=== PATIENT | female | born 1990 | race Two or more races ===

== ENCOUNTER 2024-10-30 16:38 | Emergency (ER) | payer OTHER, SELFPAY ==
[2024-10-30 16:39] VITALS: BP 123/71; PULSE 90; RESP 18; TEMP 36.7; O2SAT 100; BMI 22.9
[2024-10-30 16:41] VITALS: BP 123/71; PULSE 90; RESP 18; TEMP 36.7; O2SAT 100
--- NOTE | 2024-10-30 16:53 | EX.ED.DYSGE1 ---
HPI History of Present Illness Chief Complaint: Cellulitis Detail of Chief Complaint: Patient concerned she has cellulitis. Informant: patient and spouse/S.O. Onset/Context/Timing Onset: Today (Color drainage noted on dressing) Context: Sudden Onset Timing: Continuous Quality: Drainage from incision sites Location: Medial and dorsal surface of the left foot Current Severity: Mild Maximum Severity: Moderate Worsened by: Weightbearing Relieved by: Nothing Associated Symptoms Associated Symptoms: No constitutional symptoms Narrative Narrative: Patient is a 54-year-old woman. She receives her care at [facility]. Dr. David Ramirez with the orthopedic surgeon. She spoke with the trauma surgeon who recommended she come to the emergency department to be seen. She presented to [facility] as instructed. She denies fever, chills night sweats. She does report the drainage. She denies red streak up her leg. She is not on any immunosuppressive meds. She is not on any antibiotics. She has no allergies to medication. Prior similar symptoms: No Recent Illness/Hospitalization: Yes PFSH PFSH Medical History no medical history Allergy/AdvReac Type Severity Reaction Status Date / Time No Known Allergies Allergy Verified 10/30/24 16:39 Social History (Updated 10/30/24 @ 17:[address] Rohit Hardin MD) household members: spouse Smoking Status: Never smoker ROS ROS ED Constitutional Constitutional ED: Denies chills, fever(s), subjective, sweats or weight loss Gastrointestinal Gastrointestinal: Denies nausea or vomiting Musculoskeletal Musculoskeletal: Denies arthralgias, back pain, myalgias or neck pain Integumentary Reports other Details: Yellow-colored stain noted on dressing. ; Denies rash Neurologic Neurologic: Denies paresthesias or weakness Hematologic/Lymphatic Hematologic/Lymphatic: Reports systems reviewed and no addt'l complaints, except as documented EXAM Physical Exam Const Vital Signs: 10/30/24 16:39 10/30/24 16:41 10/30/24 18:39 Temperature 98.1 F 98.1 F Temperature Source Oral Oral Pulse Rate 90 90 85 Respiratory Rate 18 18 17 Blood Pressure 123/71 H 123/71 H 124/76 H Blood Pressure Mean 88 88 92 Pulse Ox 100 100 98 Oxygen Delivery Method Room Air Room Air Room Air Positive well nourished and well developed Constitutional Narrative: Blood pressure slightly elevated. General Appearance ED: well developed and NAD; Negative for pallor HEENT Reports moist mucous membranes HEENT Narrative: HEENT is grossly unremarkable. Resp normal respiratory effort Cardio regular rate and regular rhythm Extremity Negative for normal to inspection Extremity Narrative: Incision sites are healing without evidence infection i.e. erythema, warmth, induration, lymphangitis or fluctuance. I am unable to express any material from the 3 incision sites. There is no popliteal lymphadenopathy. General Extremety ED: Yes tenderness Neuro oriented x3 and CN's II-XII intact bilaterally Sensorium / Orientation: alert Psych mental status grossly normal Skin no rashes or lesions noted and skin turgor normal General Skin Exam: Negative for jaundice or pallor MDM MDM MDM Narrative Medical decision making narrative: My opinion is that the drainage is due to serous fluid that has oxidized from the air. Because there is concern for infection CBC was obtained as well as inflammatory markers and a x-ray of the foot was obtained. Will contact either Dr. David Ramirez who performed the surgery or the trauma service who sent her to the emergency department to discuss her case once all of her laboratory results have been resulted and interpreted by me. Lab Data Attestation: I reviewed the patient's lab results. Lab results narrative: White count is remarkable for mild anemia with normal indices. ESR was normal. CRP is slight elevated 18.1. Electrolyte panel is normal. Labs: Laboratory Results - last 24 hr 10/30/24 17:18 WBC 5.1 RBC 3.80 L Hgb 11.5 L Hct 35.6 L MCV 93.7 MCH 30.3 MCHC 32.3 RDW Std Deviation 43.2 RDW Coeff of Ashkan 12.6 Plt Count 322 MPV 9.3 Immature Gran % (Auto) 0.600 Neut % (Auto) 57.1 Lymph % (Auto) 30.4 Graves % (Auto) 8.4 Eos % (Auto) 3.1 Baso % (Auto) 0.4 Absolute Neuts (auto) 2.9 Absolute Lymphs (auto) 1.56 Nucleated RBC % 0 ESR 15 Sodium 136 Potassium 4.0 Chloride 104 Carbon Dioxide 31.0 Anion Gap 1 L BUN 12 Creatinine 0.70 Estim Creat Clear Calc 120.15 Est GFR (MDRD) Af Amer 121 Est GFR (MDRD) Non-Af 100 BUN/Creatinine Ratio 17.1 Glucose 92 Calcium 8.9 C-React Prot Ext Range 18.10 H Radiography Chest X-Ray - ED: Read by ED Physician (2 view x-ray of the left foot reveals a nondisplaced fracture of the proximal phalanx second left toe. There is also soft tissue swelling noted. There is no subcutaneous air.) Diagnostic Testing: Clinical Impression(s) from Imaging Studies Foot X-Ray 10/30/24 17:25 IMPRESSION: Proximal phalangeal fracture of the second toe.. Electronically Signed: Main Hill DO at 17:50 EST Reading Location ID and State: [facility] / [place] Tel [phone], Service support , Management Discussion w/another healthcare provider: System Specialist (Spoke with Dr. Marcelo Sharma from [facility]. He will let Dr. David Conrad know of patient's history, physical workup and reason she presented to the emergency department.) Discharge Plan Triage Chief Complaint: Cellulitis ED Provider: Rohit Hardin Dx/Rx/DC Orders Clinical Impression: Fracture of proximal phalanx of lesser toe of left foot, Postoperative pain, Encounter for assessment of wound Instructions: ED Post Op Wound Check, General Primary Care Provider: Care Physician,No Primary Referrals: David Ramirez MD [Non-Staff] - Keep Cristina appointment Care Physician,No Primary [Primary Care Provider] - Print Language: Ukrainian Disposition Disposition: Home, Self Care
--- NOTE | 2024-10-30 17:25 | RAD_ITS ---
INDICATION: Recent open fracture EXAMINATION/TECHNIQUE: X-RAY - LEFT XR Foot Min 3 Views 3 VIEWS COMPARISON: FINDINGS: SOFT TISSUES: No soft tissue swelling or gas. No radiopaque foreign body. BONES/JOINTS: There is a fracture involving the proximal phalanx of the second toe with involvement of the articular surface at the metacarpal phalangeal articulation.. No sclerotic or destructive changes observed. RAD/Foot min 3 Views IMPRESSION: Proximal phalangeal fracture of the second toe.. Electronically Signed: Main Hill DO at 17:50 EST ,
[2024-10-30 17:38] LABS: Absolute Lymphocyte Count 1.56 X10^3/uL (0.83-4.51); Absolute Neutrophil Count 2.9 X10^3/uL (2.0-7.7); Basophil# 0.02 X10^3/uL; Basophil% 0.4 % (0-1); Eosinophil# 0.16 X10^3/uL; Eosinophils% 3.1 % (0-5); Hematocrit 35.6 % (37-47); Hemoglobin 11.5 g/dL (12.0-15.0); Lymphocyte # 1.56 X10^3/ul (0.83-4.51); Lymphocyte % 30.4 % (19-41); Mean Corp Hgb Conc 32.3 g/dL (32-36); Mean Corpuscular Hgb 30.3 pg (27.0-32.0); Mean Corpuscular Volume 93.7 fL (81-99); Mean Platelet Vol. 9.3 fl (6.2-12.0); Monocyte# 0.43 X10^3/uL; Monocyte% 8.4 % (0-10); NRBC Flagged by Analyzer 0 % (0-5); Neutrophil # 2.93 X10^3/uL (2.7-7.7); Neutrophil % 57.1 % (47-70); Platelet Count 322 K/mm3 (150-450); RBC Distribution Width CV 12.6 % (11.6-14.6); RBC Distribution Width SD 43.2 fl (35.1-43.9); White Blood Count 5.1 K/mm3 (4.4-11.0)
[2024-10-30 17:51] LABS: Anion Gap 1 (5-15); BUN 12 mg/dL (7-18); BUN/Creat Ratio 17.1 RATIO (10-20); Calcium,Total 8.9 mg/dL (8.5-10.1); Chloride 104 mmol/L (98-107); EST Glomerular Filtration Rate 100 mL/min (>60); Est Glom Filt Rate - Afr Amer 121 mL/min (>60); Estimated Creatinine Clearance 120.15 ml/min; Glucose 92 mg/dL (74-106); Sodium Level 136 mmol/L (136-145)
[2024-10-30] MEDS: HYDROcodone Bitartrate/Apap 5/325 Tablet PO (17:55)
[2024-10-30 18:13] LABS: Erythrocyte Sedimentation Rate 15 mm/hr (0-30)
[2024-10-30 18:39] VITALS: BP 124/76; PULSE 85; RESP 17; O2SAT 98
[2024-10-30 19:31] VITALS: BP 123/79; PULSE 68; RESP 16; TEMP 36.6; O2SAT 99
== END 2024-10-30 19:32 | disposition home or self-care (01) ==
PROVIDERS: Emergency Provider Emergency Medicine; Visit Provider Emergency Medicine
DX: S92.515A Nondisplaced fracture of proximal phalanx of left lesser toe(s), initial encounter for closed fracture (principal); G89.18 Other acute postprocedural pain; X58.XXXA Exposure to other specified factors, initial encounter; D64.9 Anemia, unspecified
CPT/HCPCS: 73630; 80048; 85025; 85652; 86140; 99283; A4216